=== PATIENT | female | born 1975 | race Two or more races ===

== ENCOUNTER 2021-05-06 13:19 | Inpatient (IN) | payer BC, OTHER ==
[~2021-05-06] VITALS: Ht 167.6 cm; Wt 75.0 kg
[2021-05-06] MEDS ORDERED: SODIUM CHLORIDE 0.9% 1,000 ML IVB ONE (13:45)
[2021-05-06] MEDS ORDERED: AZITHROMYCIN 500MG/ 250ML 250 ML IV ONE (13:45)
[2021-05-06 14:25] LABS: Basophils # (auto) 0 10 ^3/uL (0-0.2); Eosinophils # (auto) 0 10 ^3/uL (0-0.8); Eosinophils % (auto) 0.1 % (0.0-7.0); Hematocrit 37.1 % (36.0-46.0); Hemoglobin 12.8 g/dL (12.2-16.2); Lymphocytes # (auto) 0.8 10 ^3/uL (0.4-5.4); Lymphocytes % (auto) 18.7 % (10.0-50.0); Mean Corpuscular Hemoglobin 28.6 pg (28.0-32.0); Mean Corpuscular Hgb Conc. 34.5 g/dL (32.0-36.0); Monocytes # (auto) 0.2 10 ^3/uL (0-1.3); Monocytes % (auto) 5.5 % (0.0-12.0); Neutrophils # (auto) 3.2 10 ^3/uL (1.6-8.6); Neutrophils % (auto) 75.7 % (37.0-80.0); Nucleated Red Blood Cells % 0.2 %; Red Blood Cells 4.48 10^6/uL (4.0-5.20); Red Cell Distribution Width 14.3 % (11.8-14.3); White Blood Cell 4.2 10^3/uL (4.4-10.8)
[2021-05-06 14:40] LABS: Partial Thromboplastin Time 30.3 sec (23.6-33.0)
[2021-05-06 14:43] LABS: Albumin 2.9 g/dL (3.4-5.0); Calcium 8.1 mg/dL (8.5-10.1); Magnesium 2.1 mg/dL (1.6-2.6)
[2021-05-06] MEDS ORDERED: ONDANSETRON HCL 4 MG/2 ML VIAL IV ONE (14:45)
[2021-05-06 14:46] LABS: BUN/Creatinine Ratio 11.8; Bilirubin, Total 0.3 mg/dL (0.2-1.0); Total Protein 7.3 g/dL (6.4-8.2)
[2021-05-06 14:54] LABS: Beta HCG, Quantitative < 1 mlU/mL (1-3); Thyroid Stimulating Hormone 0.73 uIU/mL (0.358-3.74)
[2021-05-06 14:57] LABS: Potassium 2.9 mmol/L (3.5-5.1)
[2021-05-06] MEDS ORDERED: POTASSIUM EFFERVESENT TAB 25 MEQ PO ONE (15:00)
[2021-05-06] MEDS ORDERED: ASCORBIC ACID 500 MG TAB PO ONE (16:30)
[2021-05-06] MEDS ORDERED: ZINC SULFATE 220mg CAP or TAB PO ONE (16:30)
[2021-05-06] MEDS ORDERED: CHOLECALCIFEROL (VITD3) 2,000 UNIT CAP/TAB PO ONE (16:30)
[2021-05-06] MEDS ORDERED: cefTRIAXone 1GM/50ML D5W 50 ML IV ONE (16:30)
[2021-05-06] MEDS ORDERED: SODIUM CHLORIDE 0.9% 500 ML IV ONE (16:45)
[2021-05-06] MEDS ORDERED: PROCHLORPERAZINE EDISYLATE 5 MG/ML 2ML VIAL IV ONE (16:45)
[2021-05-06] MEDS: POTASSIUM CHL 20MEQ/100ML 100 ML IV SCH ×2 (17:18→19:40)
[2021-05-06 18:08] LABS: Urine Bacteria NONE SEEN /hpf (None Seen); Urine Blood Negative /uL (Negative); Urine Mucus FEW (None Seen); Urine Specific Gravity 1.016 (1.001-1.035); Urine WBC <1 /hpf (0 - 5)
[2021-05-06] MEDS ORDERED: ACETAMINOPHEN 500 MG TAB PO ONE (19:00)
[2021-05-06] MEDS ORDERED: ACETAMINOPHEN 500 MG TAB PO PRN (19:45)
[2021-05-06] MEDS ORDERED: REMDESIVIR PER PHARMACY 0 ML IV SCH (19:45)
[2021-05-06] MEDS ORDERED: MORPHINE SULF INJ 2 MG/ML SYRINGE 1ML IV PRN ×2 (19:45→20:30)
[2021-05-06] MEDS ORDERED: NITROGLYCERIN 0.4 MG SL TAB SL PRN (20:30)
[2021-05-06] MEDS: DexAMETHasone SOD PHOS 10MG/1ML VIAL INJ IV SCH (20:42)
[2021-05-06 21:50] VITALS: BP 107/56
[2021-05-06] MEDS: BUDESONIDE (INHALATION) 180 MCG IH IN SCH (21:52)
[2021-05-06 22:00] VITALS: BP 108/58
[2021-05-06] MEDS: ENOXAPARIN SOD 40 MG/0.4 ML SYRINGE SC SCH (22:35)
[2021-05-07] VITALS (12 sets, daily range): BP systolic 108–125; BP diastolic 57–81
[2021-05-07] MEDS ORDERED: IVERMECTIN 3 MG TAB PO ONE (07:00)
[2021-05-07] MEDS: CHOLECALCIFEROL (VITD3) 2,000 UNIT CAP/TAB PO SCH (09:36)
[2021-05-07] MEDS: DexAMETHasone SOD PHOS 10MG/1ML VIAL INJ IV SCH (09:36)
[2021-05-07] MEDS: ASCORBIC ACID 1,000 MG TAB PO SCH (09:37)
[2021-05-07] MEDS: ZINC SULFATE 220mg CAP or TAB PO SCH (09:37)
[2021-05-07] MEDS: AZITHROMYCIN 500MG/ 250ML 250 ML IV SCH (09:38)
[2021-05-07] MEDS: ENOXAPARIN SOD 40 MG/0.4 ML SYRINGE SC SCH ×2 (10:00→22:07)
[2021-05-07] MEDS: BUDESONIDE (INHALATION) 180 MCG IH IN SCH ×2 (10:57→23:25)
[2021-05-07] MEDS: ALBUTEROL SULF HFA 90MCG INH 200DOSE IN PRN (10:58)
[2021-05-07] MEDS: IBUPROFEN 600 MG TAB PO PRN ×2 (14:18→20:58)
[2021-05-07] MEDS ORDERED: REMDESIVIR 200 MG in NS 210ml LOADING DOSE ADULT IV ONE (15:00)
[2021-05-07] MEDS ORDERED: POTASSIUM CHLORIDE 40 MEQ, LIDOCAINE 1% (LOCAL ANESTH.) 4 ML in SODIUM CHL 0.9% 250 ML IV ONE (15:00)
[2021-05-07] MEDS ORDERED: POTASSIUM CHL 20 Meq TABLET PO ONE (15:00)
[2021-05-07 16:13] LABS: Basophils # (auto) 0 10 ^3/uL (0-0.2); Basophils % (auto) 0.1 % (0.0-2.0); Eosinophils # (auto) 0 10 ^3/uL (0-0.8); Hematocrit 33.4 % (36.0-46.0); Hemoglobin 11.4 g/dL (12.2-16.2); Lymphocytes # (auto) 0.7 10 ^3/uL (0.4-5.4); Mean Corpuscular Hemoglobin 28.5 pg (28.0-32.0); Mean Corpuscular Hgb Conc. 34.3 g/dL (32.0-36.0); Monocytes # (auto) 0.2 10 ^3/uL (0-1.3); Monocytes % (auto) 3.1 % (0.0-12.0); Neutrophils # (auto) 6.9 10 ^3/uL (1.6-8.6); Neutrophils % (auto) 87.8 % (37.0-80.0); Red Blood Cells 4.02 10^6/uL (4.0-5.20); Red Cell Distribution Width 14.3 % (11.8-14.3); White Blood Cell 7.9 10^3/uL (4.4-10.8)
[2021-05-07 16:34] LABS: Albumin 2.5 g/dL (3.4-5.0); Potassium 3.1 mmol/L (3.5-5.1)
[2021-05-07 16:41] LABS: BUN/Creatinine Ratio 11.1; Bilirubin, Total 0.3 mg/dL (0.2-1.0); Total Protein 6.7 g/dL (6.4-8.2)
[2021-05-07] MEDS ORDERED: LEVO50TA7 PO (18:48)
[2021-05-08] MEDS: ALBUTEROL SULF HFA 90MCG INH 200DOSE IN PRN ×3 (00:25→20:28)
[2021-05-08] MEDS: IBUPROFEN 600 MG TAB PO PRN ×2 (01:58→12:21)
[2021-05-08 05:00] VITALS: BP 121/64
[2021-05-08] MEDS: ONDANSETRON HCL 4 MG/2 ML VIAL IV PRN ×2 (06:52→13:21)
[2021-05-08 07:10] LABS: Basophils # (auto) 0 10 ^3/uL (0-0.2); Basophils % (auto) 0.1 % (0.0-2.0); Eosinophils # (auto) 0 10 ^3/uL (0-0.8); Hemoglobin 11.5 g/dL (12.2-16.2); Lymphocytes # (auto) 1.1 10 ^3/uL (0.4-5.4); Lymphocytes % (auto) 15.3 % (10.0-50.0); Mean Corpuscular Hemoglobin 28.6 pg (28.0-32.0); Mean Corpuscular Hgb Conc. 33.8 g/dL (32.0-36.0); Mean Corpuscular Volume 84.6 fL (80.0-100.0); Monocytes # (auto) 0.3 10 ^3/uL (0-1.3); Monocytes % (auto) 3.8 % (0.0-12.0); Neutrophils # (auto) 6.1 10 ^3/uL (1.6-8.6); Neutrophils % (auto) 80.8 % (37.0-80.0); Red Blood Cells 4.02 10^6/uL (4.0-5.20); Red Cell Distribution Width 14.6 % (11.8-14.3); White Blood Cell 7.5 10^3/uL (4.4-10.8)
[2021-05-08 07:26] LABS: Albumin 2.4 g/dL (3.4-5.0); Calcium 8.2 mg/dL (8.5-10.1); Potassium 3.8 mmol/L (3.5-5.1)
[2021-05-08 07:30] LABS: BUN/Creatinine Ratio 16.3; Total Protein 6.3 g/dL (6.4-8.2)
[2021-05-08 07:33] LABS: Bilirubin, Total 0.3 mg/dL (0.2-1.0)
[2021-05-08] MEDS: BUDESONIDE (INHALATION) 180 MCG IH IN SCH ×2 (07:45→20:27)
[2021-05-08 08:10] VITALS: BP 121/68
[2021-05-08] MEDS: DexAMETHasone SOD PHOS 10MG/1ML VIAL INJ IV SCH (08:20)
[2021-05-08] MEDS: AZITHROMYCIN 500MG/ 250ML 250 ML IV SCH (08:21)
[2021-05-08] MEDS: ZINC SULFATE 220mg CAP or TAB PO SCH (08:21)
[2021-05-08] MEDS: CHOLECALCIFEROL (VITD3) 2,000 UNIT CAP/TAB PO SCH (08:22)
[2021-05-08] MEDS: ASCORBIC ACID 1,000 MG TAB PO SCH (08:22)
[2021-05-08] MEDS: ENOXAPARIN SOD 40 MG/0.4 ML SYRINGE SC SCH ×2 (08:22→21:01)
[2021-05-08] MEDS: guaiFENesin-DM 100/10mg/5ml SYR PO PRN ×2 (08:25→21:08)
[2021-05-08 09:00] VITALS: BP 121/68
[2021-05-08 13:00] VITALS: BP 124/73
[2021-05-08] MEDS: REMDESIVIR 100mg 100 MG in SODIUM CHL 0.9% 230 ML IV SCH (14:40)
[2021-05-08 17:00] VITALS: BP 119/74
[2021-05-08] MEDS ORDERED: FLORASTOR (S. BOULARDII) 250 MG CAP PO ONE (20:45)
[2021-05-08 22:00] VITALS: BP 121/68
[2021-05-09] VITALS (8 sets, daily range): BP systolic 112–131; BP diastolic 63–73
[2021-05-09] MEDS: ONDANSETRON HCL 4 MG/2 ML VIAL IV PRN
[2021-05-09] MEDS: LEVOTHYROXINE SODIUM 50 MCG TAB PO SCH (05:46)
[2021-05-09 06:29] LABS: Albumin 2.3 g/dL (3.4-5.0); Calcium 8.4 mg/dL (8.5-10.1); Potassium 3.4 mmol/L (3.5-5.1)
[2021-05-09 06:33] LABS: BUN/Creatinine Ratio 22.2; Bilirubin, Total 0.4 mg/dL (0.2-1.0); Total Protein 6.3 g/dL (6.4-8.2)
[2021-05-09 07:34] LABS: Basophils # (auto) 0 10 ^3/uL (0-0.2); Basophils % (auto) 0.1 % (0.0-2.0); Eosinophils # (auto) 0 10 ^3/uL (0-0.8); Eosinophils % (auto) 0.1 % (0.0-7.0); Hematocrit 33.1 % (36.0-46.0); Hemoglobin 11.2 g/dL (12.2-16.2); Lymphocytes # (auto) 1.2 10 ^3/uL (0.4-5.4); Lymphocytes % (auto) 21.9 % (10.0-50.0); Mean Corpuscular Hemoglobin 28.4 pg (28.0-32.0); Mean Corpuscular Hgb Conc. 33.8 g/dL (32.0-36.0); Monocytes # (auto) 0.4 10 ^3/uL (0-1.3); Monocytes % (auto) 7.1 % (0.0-12.0); Neutrophils # (auto) 3.9 10 ^3/uL (1.6-8.6); Neutrophils % (auto) 70.8 % (37.0-80.0); Nucleated Red Blood Cells % 0.1 %; Red Blood Cells 3.94 10^6/uL (4.0-5.20); Red Cell Distribution Width 14.5 % (11.8-14.3); White Blood Cell 5.6 10^3/uL (4.4-10.8)
[2021-05-09] MEDS: BUDESONIDE (INHALATION) 180 MCG IH IN SCH ×2 (08:09→21:47)
[2021-05-09] MEDS: ALBUTEROL SULF HFA 90MCG INH 200DOSE IN PRN ×2 (08:09→21:46)
[2021-05-09] MEDS: DexAMETHasone SOD PHOS 10MG/1ML VIAL INJ IV SCH (08:57)
[2021-05-09] MEDS: AZITHROMYCIN 500MG/ 250ML 250 ML IV SCH (08:58)
[2021-05-09] MEDS: ZINC SULFATE 220mg CAP or TAB PO SCH (08:58)
[2021-05-09] MEDS: ENOXAPARIN SOD 40 MG/0.4 ML SYRINGE SC SCH ×2 (08:59→21:30)
[2021-05-09] MEDS: ASCORBIC ACID 1,000 MG TAB PO SCH (08:59)
[2021-05-09] MEDS: FLORASTOR (S. BOULARDII) 250 MG CAP PO SCH (08:59)
[2021-05-09] MEDS: CHOLECALCIFEROL (VITD3) 2,000 UNIT CAP/TAB PO SCH (08:59)
[2021-05-09] MEDS ORDERED: POTASSIUM CHL 20 Meq TABLET PO ONE (11:45)
[2021-05-09] MEDS: REMDESIVIR 100mg 100 MG in SODIUM CHL 0.9% 230 ML IV SCH (16:22)
[2021-05-10 03:18] VITALS: BP 117/73
[2021-05-10 05:00] VITALS: BP 114/67
[2021-05-10] MEDS: LEVOTHYROXINE SODIUM 50 MCG TAB PO SCH (05:50)
[2021-05-10] MEDS: BUDESONIDE (INHALATION) 180 MCG IH IN SCH ×2 (07:25→22:34)
[2021-05-10] MEDS: ALBUTEROL SULF HFA 90MCG INH 200DOSE IN PRN ×2 (07:25→22:35)
[2021-05-10 08:51] VITALS: BP 115/69
[2021-05-10] MEDS: ASCORBIC ACID 1,000 MG TAB PO SCH (09:49)
[2021-05-10] MEDS: CHOLECALCIFEROL (VITD3) 2,000 UNIT CAP/TAB PO SCH (09:49)
[2021-05-10] MEDS: FLORASTOR (S. BOULARDII) 250 MG CAP PO SCH (09:49)
[2021-05-10] MEDS: AZITHROMYCIN 500MG/ 250ML 250 ML IV SCH (09:50)
[2021-05-10] MEDS: ENOXAPARIN SOD 40 MG/0.4 ML SYRINGE SC SCH ×2 (09:50→21:18)
[2021-05-10] MEDS: DexAMETHasone SOD PHOS 10MG/1ML VIAL INJ IV SCH (09:50)
[2021-05-10] MEDS: ZINC SULFATE 220mg CAP or TAB PO SCH (10:03)
[2021-05-10 10:33] LABS: BUN/Creatinine Ratio 14.8; Calcium 8.9 mg/dL (8.5-10.1); Potassium 3.4 mmol/L (3.5-5.1)
[2021-05-10] MEDS ORDERED: POTASSIUM CHL 20 Meq TABLET PO ONE (12:00)
[2021-05-10] MEDS ORDERED: FAMOTIDINE (10MG/ML) 2ML VL IV ONE (12:15)
[2021-05-10 13:00] VITALS: BP 116/69
[2021-05-10] MEDS: REMDESIVIR 100mg 100 MG in SODIUM CHL 0.9% 230 ML IV SCH (14:45)
[2021-05-10 17:00] VITALS: BP 111/70
[2021-05-11 05:00] VITALS: BP 112/62
[2021-05-11] MEDS: LEVOTHYROXINE SODIUM 50 MCG TAB PO SCH (06:01)
[2021-05-11 07:05] LABS: Potassium 3.6 mmol/L (3.5-5.1)
[2021-05-11 07:09] LABS: BUN/Creatinine Ratio 20.8; Calcium 8.6 mg/dL (8.5-10.1)
[2021-05-11] MEDS: BUDESONIDE (INHALATION) 180 MCG IH IN SCH ×2 (07:28→22:02)
[2021-05-11] MEDS: ALBUTEROL SULF HFA 90MCG INH 200DOSE IN PRN ×2 (07:28→22:02)
[2021-05-11 09:00] VITALS: BP 114/69
[2021-05-11] MEDS: FAMOTIDINE (10MG/ML) 2ML VL IV SCH (09:41)
[2021-05-11] MEDS: DexAMETHasone SOD PHOS 10MG/1ML VIAL INJ IV SCH (09:41)
[2021-05-11] MEDS: AZITHROMYCIN 500MG/ 250ML 250 ML IV SCH (09:42)
[2021-05-11] MEDS: ZINC SULFATE 220mg CAP or TAB PO SCH (09:42)
[2021-05-11] MEDS: FLORASTOR (S. BOULARDII) 250 MG CAP PO SCH (09:42)
[2021-05-11] MEDS: ASCORBIC ACID 1,000 MG TAB PO SCH (09:43)
[2021-05-11] MEDS: CHOLECALCIFEROL (VITD3) 2,000 UNIT CAP/TAB PO SCH (09:43)
[2021-05-11] MEDS: ENOXAPARIN SOD 40 MG/0.4 ML SYRINGE SC SCH ×2 (10:00→22:14)
[2021-05-11 12:48] VITALS: BP 108/63
[2021-05-11] MEDS: REMDESIVIR 100mg 100 MG in SODIUM CHL 0.9% 230 ML IV SCH (14:57)
[2021-05-11 16:41] VITALS: BP 112/62
[2021-05-11 22:00] VITALS: BP 118/68
[2021-05-12 05:00] VITALS: BP 111/62
[2021-05-12] MEDS: LEVOTHYROXINE SODIUM 50 MCG TAB PO SCH (06:50)
[2021-05-12 08:43] VITALS: BP 118/64
[2021-05-12] MEDS: BUDESONIDE (INHALATION) 180 MCG IH IN SCH (09:11)
[2021-05-12] MEDS: ALBUTEROL SULF HFA 90MCG INH 200DOSE IN PRN (09:11)
[2021-05-12] MEDS: CHOLECALCIFEROL (VITD3) 2,000 UNIT CAP/TAB PO SCH (10:00)
[2021-05-12] MEDS: FAMOTIDINE (10MG/ML) 2ML VL IV SCH (11:07)
[2021-05-12] MEDS: ZINC SULFATE 220mg CAP or TAB PO SCH (11:07)
[2021-05-12] MEDS: DexAMETHasone SOD PHOS 10MG/1ML VIAL INJ IV SCH (11:07)
[2021-05-12] MEDS: ENOXAPARIN SOD 40 MG/0.4 ML SYRINGE SC SCH (11:08)
[2021-05-12] MEDS: ASCORBIC ACID 1,000 MG TAB PO SCH (11:08)
[2021-05-12] MEDS: FLORASTOR (S. BOULARDII) 250 MG CAP PO SCH (11:08)
[2021-05-12] MEDS: ONDANSETRON HCL 4 MG/2 ML VIAL IV PRN (11:55)
[2021-05-12 13:00] VITALS: BP 112/70
[2021-05-12 16:46] VITALS: BP 107/57
[2021-05-13] MEDS ORDERED: LEVOTHYROXINE SODIUM 50 MCG TAB PO SCH (06:00)
== END 2021-05-12 19:45 | disposition home or self-care (01) | DRG 177 ==
LOC: ER 13:19 → TELE 20:22 → TELE-EAST 21:40
PROVIDERS: ADMIT Nurse Practitioner Acute Care; ATTEND Internal Medicine
PROC: XW13325 Transfusion of Convalescent Plasma (Nonautologous) into Peripheral Vein, Percutaneous Approach, New Technology Group 5 (ICD-10-PCS; principal; 2021-05-07)
PROC: XW033E5 Introduction of Remdesivir Anti-infective into Peripheral Vein, Percutaneous Approach, New Technology Group 5 (ICD-10-PCS; 2021-05-07)
DX: U07.1 COVID-19 (principal); J12.82 Pneumonia due to coronavirus disease 2019; J96.01 Acute respiratory failure with hypoxia; E44.0 Moderate protein-calorie malnutrition; D89.834 Cytokine release syndrome, grade 4; D69.6 Thrombocytopenia, unspecified; E03.9 Hypothyroidism, unspecified; E87.6 Hypokalemia; Z68.27 Body mass index [BMI] 27.0-27.9, adult; Z91.011 Allergy to milk products; Z79.82 Long term (current) use of aspirin
CPT/HCPCS: 36415; 36430; 71045; 80048; 80053; 81001; 82306; 82728; 83605; 83735; 83880; 84132; 84443; 84702; 85025; 85379; 85610; 85730; 86141; 86850; 86900; 86901; 87040; 87426; 93005; 94640; 96361; 96365; 96367; G0378; J0696; J1100; J2001; J2405; J3480; J3490

== ENCOUNTER → 2022-02-07 | Outpatient (CLI) | payer MEDICAID ==
[~2022-02-07] MED LIST: ALBUTEROL SULF 2.5 MG/0.5ML(0.5%) NEB SOLN ONE; LEVO50TA7 PO
== END | disposition home or self-care (01) ==
LOC: RT 08:12
PROVIDERS: ATTEND Internal Medicine Pulmonary Disease
DX: U09.9 Post COVID-19 condition, unspecified (principal)
CPT/HCPCS: 94060

== ENCOUNTER → 2022-02-28 | Outpatient (CLI) | payer MEDICAID ==
[~2022-02-28] MED LIST changes: -ALBUTEROL SULF 2.5 MG/0.5ML(0.5%) NEB SOLN ONE
== END | disposition home or self-care (01) ==
LOC: Rad HDHVI 14:05
PROVIDERS: ATTEND Internal Medicine
DX: I07.1 Rheumatic tricuspid insufficiency (principal); R07.9 Chest pain, unspecified; R06.02 Shortness of breath
CPT/HCPCS: 93306

== ENCOUNTER → 2022-04-18 | Outpatient (CLI) | payer MEDICAID ==
[~2022-04-18] VITALS: Ht 167.6 cm; Wt 73.5 kg
== END | disposition home or self-care (01) ==
LOC: Rad HDHVI 09:03
PROVIDERS: ATTEND Internal Medicine
DX: R06.02 Shortness of breath (principal); E78.5 Hyperlipidemia, unspecified; R42 Dizziness and giddiness
CPT/HCPCS: 93017